=== PATIENT | male | born 1990 | race Caucasian/White ===

== ENCOUNTER 2017-07-13 10:00 | Emergency (ER) | payer OTHER ==
[~2017-07-13] VITALS: Ht 175.3 cm; Wt 68.2 kg
[2017-07-13] MEDS ORDERED: LIDOCAINE 2% MDV 20 ML VIAL SC ONE (10:30)
[2017-07-13 11:10] VITALS: BP 126/73
== END 2017-07-13 11:12 | disposition home or self-care (01) ==
LOC: M ED 10:00
DX: S61.216A Laceration without foreign body of right little finger without damage to nail, initial encounter (principal); W26.0XXA Contact with knife, initial encounter; Y92.090 Kitchen in other non-institutional residence as the place of occurrence of the external cause; Y93.G3 Activity, cooking and baking; Y99.9 Unspecified external cause status

== ENCOUNTER 2017-10-12 12:09 | Emergency (ER) | payer OTHER ==
[~2017-10-12] VITALS: Ht 177.8 cm; Wt 72.2 kg
[2017-10-12 12:18] VITALS: BP 136/71
[2017-10-12] MEDS ORDERED: IBUP-1022 PO (14:06)
--- NOTE | 2017-10-12 14:28 | REP ---
MAXILLOFACIAL CT WITHOUT CONTRAST: HISTORY: Trauma. Minimal mucosal thickening is present in the right maxillary sinus. The remaining sinuses are clear. The ostiomeatal units are patent. The middle and inferior nasal turbinates are partially paradoxical. 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 There is minimal deviation of the nasal septum to the left. The cribriform plate, medial edge of the orbits and optic canals are intact. The carotid canals form a segment of the posterolateral edge of the sphenoid sinus. There is no fracture. IMPRESSION: Sinus mucosal thickening as described above. Signed by Raffy Birmingham MD 10/12/2017 02:54 P
== END 2017-10-12 14:36 | disposition home or self-care (01) ==
LOC: M ED 12:09
DX: S00.83XA Contusion of other part of head, initial encounter (principal); W50.0XXA Accidental hit or strike by another person, initial encounter; Y92.018 Other place in single-family (private) house as the place of occurrence of the external cause; Y93.89 Activity, other specified; Y99.8 Other external cause status; R04.0 Epistaxis; F17.210 Nicotine dependence, cigarettes, uncomplicated